=== PATIENT | female | born 1960 | race Caucasian/White ===

== ENCOUNTER → 2022-08-22 19:11 | Outpatient (CLI) | payer BC, SELFPAY ==
[2022-08-22 19:25] LABS: Basophils % 0.6 % (0.1-2.0); Eosinophils # 0.2 K/mm3 (0.0-0.4); Eosinophils % 3.2 % (0.1-12.0); Hematocrit 44.4 % (37.0-47.0); Hemoglobin 14.1 g/dL (12.2-16.2); Lymphocytes % 43.9 % (10-50); Mean Corpuscular HGB Conc 31.8 g/dL (31.8-35.4); Mean Corpuscular Hemoglobin 29.5 pg (27.0-31.2); Mean Corpuscular Volume 92.8 fl (81-99); Mean Platelet Volume 9.6 fl (7.4-10.4); Monocytes # 0.5 K/mm3 (0.1-1.0); Monocytes % 7.6 % (1.7-9.3); Neutrophils % 44.6 % (37.0-80.0); Platelet Count 277 K/mm3 (142-424); Red Blood Count 4.79 M/mm3 (4.20-5.40); White Blood Count 6.8 K/mm3 (4.8-10.8)
[2022-08-22 19:26] LABS: Chloride 110 mmol/L (98-107); Potassium 4.1 mmoL/L (3.5-5.1); Sodium 142 mmol/L (136-145)
[2022-08-22 19:28] LABS: Alanine Aminotransferase 18 U/L (12-78); Aspartate Amino Transferase 30 U/L (14-36); Blood Urea Nitrogen 9 mg/dl (7-17); Estimated Glomerular Filt Rate 85 ml/min (>60); GFR (African American) 103 ML/MIN (>60)
[2022-08-22 19:29] LABS: Albumin Level 4.4 g/dl (3.5-5.0); Albumin/Globulin Ratio 1.6 (1.1-1.8); Alkaline Phosphatase 136 U/L (38-126); Anion Gap 11.1 mEq/L (5-15); Bilirubin,Total 0.4 mg/dl (0.2-1.3); Calcium 9.1 mg/dl (8.4-10.2); Carbon Dioxide 25 mmol/L (22.0-30.0); Chol/HDL Ratio 3.5 (1-3.5); Cholesterol 180 mg/dl (140-200); Globulin 2.7 g/dL (1.3-3.2); Glucose 98 mg/dl (74-100); HDL Cholesterol 52 mg/dl (40-60); Total Protein,Serum 7.1 g/dl (6.3-8.2); Triglycerides 154 mg/dl (30-150); VLDL Cholesterol 31 mg/dL (0-40)
[2022-08-22 19:40] LABS: Direct LDL Cholesterol 93.38 mg/dL (100-129)
[2022-08-22 19:46] LABS: 25-OH Vitamin D, Total 18.8 ng/mL (30-100); Free T4 (Free Thyroxine) 1.35 ng/dl (0.78-2.19)
[2022-08-22 20:00] LABS: Thyroid Stimulating Hormone 0.16 uIU/mL (0.465-4.68)
== END ==
PROVIDERS: PCP Emergency Medicine; Visit Provider Emergency Medicine
DX: R53.83 Other fatigue (principal); E55.9 Vitamin D deficiency, unspecified; Z79.899 Other long term (current) drug therapy
CPT/HCPCS: 80053; 80061; 82306; 84439; 84443; 85025

== ENCOUNTER → 2022-09-13 10:59 | Outpatient (CLI) | payer BC, SELFPAY ==
--- NOTE | 2022-09-13 10:59 | MR_ITS ---
FINAL REPORT CLINICAL HISTORY: back pain lower back pain x 1 month FINDINGS: Multiplanar MR imaging of the lumbar spine was performed without contrast. On the sagittal T2-weighted images, disc degeneration is seen at several levels. The vertebral alignment is normal. There is no evidence of fracture. There is a 19 mm area of abnormal signal in the L3 vertebrae. The conus has an unremarkable appearance. No significant canal stenosis is identified. 1-2: There is no significant canal stenosis or neural foraminal narrowing. L2-3: There is no significant canal stenosis or neural foraminal narrowing. L3-4: There is no significant canal stenosis or neural foraminal narrowing. L4-5: An annular bulge is present. There is mild bilateral neural foraminal narrowing. L5-S1: There is an annular bulge with a small central disc protrusion. There is mild bilateral neural foraminal narrowing. IMPRESSION: Area of abnormal signal within the L3 vertebral body could represent atypical hemangioma versus other neoplasm. This could be further evaluated with follow-up MRI and/or bone scan. Small central disc protrusion at L5-S1 without central canal stenosis. Mild bilateral neural foraminal narrowing at L4-L5 and L5-S1. Reviewed, Interpreted and Dictated by Favian Sepulveda III, MD Transcribed by Kyle Mathias Authenticated and [facility]
== END ==
PROVIDERS: PCP Emergency Medicine; Visit Provider Emergency Medicine
DX: M54.9 Dorsalgia, unspecified (principal); M54.50 Low back pain, unspecified
CPT/HCPCS: 72148; 76376

== ENCOUNTER → 2022-09-20 07:45 | Outpatient (CLI) | payer BC, SELFPAY ==
--- NOTE | 2022-09-20 07:45 | US_ITS ---
FINAL REPORT CLINICAL HISTORY: ventral hernia FINDINGS: US ABDOMINAL LIMITED Limited sonographic images were obtained of the left upper quadrant. At the area of interest there are no masses or fluid collections identified. IMPRESSION: No mass or fluid collection at the area of interest. Reviewed, Interpreted and Dictated by Lazaro Ni MD Transcribed by Kyle Mathias Authenticated and [facility]
== END ==
LOC: RAD 07:45
PROVIDERS: PCP Emergency Medicine; Visit Provider Emergency Medicine
DX: K43.9 Ventral hernia without obstruction or gangrene (principal)
CPT/HCPCS: 76700

== ENCOUNTER → 2022-09-22 10:15 | Outpatient (CLI) | payer BC, SELFPAY ==
--- NOTE | 2022-09-22 10:15 | NM_ITS ---
FINAL REPORT CLINICAL HISTORY: abnl lumbar MRI L3 10:40 am 25.6 mci Tc MDP injected into lt ant pt is getting l-spine and rib xray FINDINGS: EXISTING RELEVANT IMAGING STUDIES: TECHNIQUE: The patient was injected with 25.6 mCi of technetium 99-[id number]. 3 hour delayed images were obtained. FINDINGS: Abnormal activity is seen in the L3 vertebrae concerning for compression deformity. There is also a solitary focus of abnormal activity in the left 9th rib laterally. No other abnormal tracer activity is identified to suggest occult fracture or metastatic disease. IMPRESSION: Abnormal activity knee L3 vertebrae concerning for compression deformity. Solitary focus of abnormal activity in the left 9th lateral rib. Reviewed, Interpreted and Dictated by Lazaro Ni MD Transcribed by Kassidy Rutledge Authenticated and [facility]
--- NOTE | 2022-09-22 14:09 | XR_ITS ---
FINAL REPORT CLINICAL HISTORY: per Radiologist. abnormal bone scan. FINDINGS: LUMBAR SPINE Three views demonstrate no acute fracture. The disc spaces are well preserved. There is no malalignment. No abnormality is seen corresponding to the bone scan abnormality. IMPRESSION: No abnormality seen corresponding to the bone scan abnormality. Consider MRI. Reviewed, Interpreted and Dictated by Lazaro Ni MD Transcribed by Karina Pedro Authenticated and [facility]
--- NOTE | 2022-09-22 14:09 | XR_ITS ---
FINAL REPORT TECHNIQUE: Abnormal bone scan. CLINICAL HISTORY: per Radiologist FINDINGS: A single view of the chest with 3 views of the ribs were obtained. There is no acute cardiopulmonary process. No pneumothorax is identified. There is a healing fracture of the posterolateral left 9th rib. Callus formation is seen at this location. IMPRESSION: Healing fracture of a posterolateral left 9th rib. Reviewed, Interpreted and Dictated by Lazaro Ni MD Transcribed by Karina Pedro Authenticated and [facility]
== END ==
LOC: RAD 10:15
PROVIDERS: PCP Emergency Medicine; Visit Provider Physician Assistant
DX: R93.7 Abnormal findings on diagnostic imaging of other parts of musculoskeletal system (principal)
CPT/HCPCS: 71101; 72100; 78306; A9503

== ENCOUNTER → 2022-09-26 15:00 | Outpatient (CLI) | payer BC, SELFPAY ==
[2022-09-26 19:47] LABS: Amphetamine/Metha Screen,Urine Positive ng/ml (<1000); Barbiturates Screen,Urine Negative ng/ml (<200)
[2022-09-26 22:37] LABS: Cocaine Screen,Urine Negative ng/ml (<300)
[2022-09-26 22:39] LABS: Phencyclidine Screen,Urine Negative ng/ml (<25)
[2022-09-26 22:41] LABS: Benzodiazepines Screen,Urine Negative ng/ml (<200)
[2022-09-26 22:42] LABS: Cannabinoid Screen,Urine Positive ng/ml (<50)
[2022-09-26 22:43] LABS: Methadone Screen,Urine Negative ng/ml (<300); Opiate Screen,Urine Negative ng/ml (<300)
== END ==
PROVIDERS: PCP Emergency Medicine; Visit Provider Emergency Medicine
DX: Z79.899 Other long term (current) drug therapy (principal)
CPT/HCPCS: 80305

== ENCOUNTER → 2022-10-17 09:20 | Outpatient (CLI) | payer BC, SELFPAY ==
--- NOTE | 2022-10-17 09:20 | XR_ITS ---
FINAL REPORT TECHNIQUE: Bone densitometry calculations of the lumbar spine and left hip were obtained. CLINICAL HISTORY: post menopausal FINDINGS: DEXA BONE DENSITY AXIAL SKELETON Using L1-4, the bone mineral density of the spine is 0.710 g/cm2, corresponding to T-score of -3.1. Using the left hip, the bone mineral density of the femoral neck is 0.617 g/cm2, corresponding to a T-score of -2.7. NOTE: T-score: Standard deviation compared with peak bone mass of young adult mean. *Following the recommendations of the International Society of Bone Densitometry, classification of hip BMD is based on the lower of two T-scores; total hip or femoral neck. IMPRESSION: Osteoporosis: Lowest T-score is at or below -2.5. This patient's T-score meets the World Health Organization criteria for osteoporosis. FRAX not reported because: Some T-score for Spine Total or hip Total or femoral neck at or below -2.5. Reviewed, Interpreted and Dictated by Favian Sepulveda III, MD Transcribed by Britni Guzman Authenticated and [facility]
== END ==
LOC: RAD 09:20
PROVIDERS: PCP Emergency Medicine; Visit Provider Emergency Medicine
DX: M81.0 Age-related osteoporosis without current pathological fracture (principal)
CPT/HCPCS: 77080

== ENCOUNTER → 2022-10-24 12:51 | Outpatient (POV) | payer BC, SELFPAY ==
[2022-10-24 12:57] VITALS: BP 104/74; PULSE 101; RESP 18; O2SAT 98; BMI 22.6
--- NOTE | 2022-10-24 13:02 | EXP.PAIN.OV ---
HPI Data of Consult Patient: new to practice Consult date: 10/24/22 Requesting Physician: Katy Ludwig APRN Primary Care Provider: Carlos Pitts MD Consult Narrative Reason for consult: Low back pain History of present illness: Ms. Maloney is a 62 year old female who presents today as a new patient. She is a referral from Dr. Pitts's office. Today she rates her pain a 5 out of 10. Patient states her pain is all in her back and describes it as a constant achy sensation that is worse with increased activity. Patient does state that she works at [employer] and used to do the [employer] list and would occasionally do lifting that would cause pain in her back. She states since then she has started working in the [employer] department and is constantly lifting products anywhere from 20 pounds to 5 pounds which is aggravating her back symptoms. Patient does state this interferes with her ability to perform activities of daily living such as cooking and cleaning. She states the pain has been going on for quite a while however it has worsened since mid June. Patient has no history of back surgery injections or physical therapy. Patient does use [id number] ibuprofen that does provide additional relief. Patient has not tried any heat or ice or topicals. She does state that she has no cardiac or kidney history. She is currently prescribed alprazolam 0.5 mg twice a day, dextroamphetamine 5 mg 3 times a day and [place] 7.5 mg 3 times a day from her primary care doctor. Patient denies any side effects from these medications. Her Rishi is [id number]. Its been reviewed and appropriate. CC: Katy Ludwig APRN [facility] Disclaimer: The information contained in this section may have been updated after the patient was seen, as this information can be updated by other users. Medical History (Updated 10/24/22 @ 14:01 by Katy Ludwig APRN) Anxiety Family History Other Cancer Social History (Updated 10/24/22 @ 13:01 by Charity Hwang RN) Smoking Status: Former smoker smoking status stop date: 07/03/21 how long ago did patient quit smokin year alcohol intake: never substance use type: marijuana current occupational status: employed Travel in the last 8 weeks: None Review of Systems Review of Systems Review of systems:: pertinent systems reviewed and negative unless documented below Review of systems (narrative): Review of Systems: General: No recent weight changes, no fever, no sleep disturbances Respiratory: No cough, no shortness of air, no recurring pulmonary infections Cardiovascular/peripheral vascular: No chest pain, no palpitations, no edema, no shortness of breath Gastrointestinal: No new onset incontinence, normal bowel movements reported Genitourinary: No new onset incontinence Musculoskeletal: Low back pain Psychiatric: [Normal mood/affect] Neurological: [Denies weakness in extremities], [denies balance issues] Meds Home Medications and Allergies Home Medications Medication Instructions Recorded Confirmed Type alprazolam 0.5 mg tablet 0.5 mg PO BID NERVES 10/24/22 10/24/22 History bupropion HCl 300 mg 24 hr tablet, 300 mg PO DAILY MOOD 10/24/22 10/24/22 History extended release cholecalciferol (vitamin D3) 1,250 1,250 mcg PO WEEKLY SUPPLIMENT 10/24/22 10/24/22 History mcg (50,000 unit) capsule dextroamphetamine-amphetamine 20 20 mg PO TID MOOD 10/24/22 10/24/22 History mg tablet hydrocodone 7.5 mg-acetaminophen 1 tab PO TID Pain 10/24/22 10/24/22 History 325 mg tablet olanzapine 15 mg tablet 15 mg PO HS MOOD 10/24/22 10/24/22 History New Prescriptions to Start Prescriptions: Allergies Allergy/AdvReac Type Severity Reaction Status Date / Time Penicillins Allergy Mild Rash Verified 09/26/22 15:08 Objective Narrative: Physical Exam: General: Alert and oriented x3, no acute distress, pleasant and care coordinator
== END | disposition home or self-care (01) ==
PROVIDERS: PCP Emergency Medicine; Visit Provider Nurse Practitioner Family
DX: M54.50 Low back pain, unspecified (principal); M47.816 Spondylosis without myelopathy or radiculopathy, lumbar region
CPT/HCPCS: 99202; G0463

== ENCOUNTER → 2023-03-29 15:46 | Outpatient (CLI) | payer BC, SELFPAY ==
--- NOTE | 2023-03-29 15:46 | MM_ITS ---
PROCEDURE INFORMATION: Exam: Bilateral Screening 3D Mammography Exam date and time: 03/29/2023 3:48 PM Age: 62 years old Clinical indication: Screening examination TECHNIQUE: Imaging protocol: Bilateral Screening tomosynthesis and 2D mammography including computer-aided detection (CAD) when performed. COMPARISON: 1. MG SCRN MAMMO W/CAD BILAT 03/29/2017 3:52 PM 2. MG MAMMO SCREENING DIGITAL TOMOSYNTHESIS BILATERAL W CAD 03/08/2016 3:55 PM FINDINGS: MAMMOGRAPHY: Breast composition: There are scattered areas of fibroglandular density. Mass: None. Architectural distortion: None. Calcifications: No suspicious calcifications. Asymmetric density: None. Skin thickening: None. Axillary adenopathy: None. IMPRESSION: No mammographic evidence of malignancy. Annual screening is recommended unless otherwise clinically indicated. ASSESSMENT: BI-RADS Category 1: Negative
== END ==
PROVIDERS: PCP Emergency Medicine; Visit Provider Emergency Medicine
DX: Z12.39 Encounter for other screening for malignant neoplasm of breast (principal)
CPT/HCPCS: 77063; 77067

== ENCOUNTER → 2023-04-07 21:24 | Outpatient (CLI) | payer BC, SELFPAY ==
[2023-04-07 16:31] LABS: Amphetamine/Metha Screen,Urine Negative ng/ml (<1000); Barbiturates Screen,Urine Negative ng/ml (<200)
[2023-04-07 16:32] LABS: Benzodiazepines Screen,Urine Positive ng/ml (<200); Cannabinoid Screen,Urine Positive ng/ml (<50)
[2023-04-07 16:34] LABS: Cocaine Screen,Urine Negative ng/ml (<300); Methadone Screen,Urine Negative ng/ml (<300)
[2023-04-07 16:35] LABS: Opiate Screen,Urine Negative ng/ml (<300)
[2023-04-07 16:36] LABS: Phencyclidine Screen,Urine Negative ng/ml (<25)
== END ==
PROVIDERS: PCP Emergency Medicine; Visit Provider Emergency Medicine
DX: F41.9 Anxiety disorder, unspecified (principal)
CPT/HCPCS: 80305

== ENCOUNTER 2023-10-02 16:08 | Outpatient (CLI) | payer BC, SELFPAY ==
--- NOTE | 2023-10-02 16:27 | CT_ITS ---
PROCEDURE INFORMATION: Exam: CTA Chest With Contrast Exam date and time: 10/02/2023 5:28 PM Age: 63 years old Clinical indication: Dyspnea and tachypnea and other: Lung CA; Additional info: Dyspnea/tachycardia/lung CA TECHNIQUE: Imaging protocol: Computed tomographic angiography of the chest with contrast. Exam focused on the arteries. 3D rendering (Not supervised by radiologist): MIP and/or 3D reconstructed images were created by the technologist. Radiation optimization: All CT scans at this facility use at least one of these dose optimization techniques: automated exposure control; mA and/or kV adjustment per patient size (includes targeted exams where dose is matched to clinical indication); or iterative reconstruction. Contrast material: ISOVUE; Contrast volume: 75 ml; Contrast route: INTRAVENOUS (IV); COMPARISON: 1. CR XR RIBS LT MIN 3V W CXR1V 09/22/2022 2:15 PM 2. NM BONE SCAN WHOLE BODY 09/22/2022 1:46 PM 3. US ABDOMEN COMPLETE 09/20/2022 7:47 AM FINDINGS: Tubes, catheters and devices: There is a right chest port in place catheter tip projects over the SVC. Pulmonary arteries: There is fair opacification of the pulmonary arterial tree. No central pulmonary arterial filling defect is seen. Aorta: There is atherosclerotic disease of the visualized aorta and its major branch vessels. Other arteries: Subsegmental vessels are not well evaluated due to technical factors. Lungs: Scattered areas of bronchial wall thickening which are likely chronic inflammatory. A few areas of subpleural reticulation are noted, nonspecific. There are scattered areas of emphysema throughout the lungs. There is a consolidative opacity in the left lower lobe which is concerning for pneumonia in the acute setting. Given the patient's history of lung cancer, malignancy in this region is not excluded and correlation with prior cross-sectional imaging is suggested. There are scattered areas of emphysema throughout the lungs. There are scattered calcified granulomas in the lungs which most likely reflect prior granulomatous disease. Pleural spaces: Unremarkable. No pneumothorax. No pleural effusion. Heart: Unremarkable. No cardiomegaly. No pericardial effusion. Coronary arteries: There is mild coronary atherosclerotic disease/calcification although evaluation is limited secondary to the non gated nature of the study. Lymph nodes: Unremarkable. No enlarged lymph nodes. Gallbladder and bile ducts: The patient is status post cholecystectomy. Bones/joints: There is diffuse degenerative disease of the visualized osseous structures. Soft tissues: Unremarkable. IMPRESSION: 1. No central pulmonary arterial filling defect is seen. Subsegmental vessels are not well evaluated due to technical factors. 2. There is a consolidative opacity in the left lower lobe which is concerning for pneumonia in the acute setting. Given the patient's history of lung cancer, malignancy in this region is not excluded and correlation with prior cross-sectional imaging is suggested.
[2023-10-02 16:33] LABS: Basophils # 0.1 K/mm3 (0-0.2); Basophils % 0.9 % (0.1-2.0); Eosinophils # 0.1 K/mm3 (0.0-0.4); Hematocrit 46.6 % (37.0-47.0); Hemoglobin 15.3 g/dL (12.2-16.2); Lymphocytes # 2.3 K/mm3 (0.7-4.5); Lymphocytes % 34.9 % (10-50); Mean Corpuscular HGB Conc 32.8 g/dL (31.8-35.4); Mean Corpuscular Volume 94.6 fl (81-99); Mean Platelet Volume 7.9 fl (7.4-10.4); Monocytes # 0.4 K/mm3 (0.1-1.0); Monocytes % 5.3 % (1.7-9.3); Neutrophils # 3.8 K/mm3 (1.8-7.8); Neutrophils % 57.8 % (37.0-80.0); Platelet Count 299 K/mm3 (142-424); Red Blood Count 4.92 M/mm3 (4.20-5.40); Red Cell Distribution Width 14.1 % (11.5-17.5); White Blood Count 6.6 K/mm3 (4.8-10.8)
[2023-10-02 17:06] LABS: Alanine Aminotransferase 27 U/L (12-78); Albumin Level 3.9 g/dl (3.5-5.0); Alkaline Phosphatase 100 U/L (38-126); Aspartate Amino Transferase 32 U/L (14-36); Bilirubin,Direct 0.4 mg/dl (0.0-0.4); Bilirubin,Indirect 0.1 mg/dL (0.0-0.9); Bilirubin,Total 0.5 mg/dl (0.2-1.3); Bilirubin,Unconjugated 0.2 mg/dL (0.0-1.1); Blood Urea Nitrogen 14 mg/dl (7-17); Calcium 9.9 mg/dl (8.4-10.2); Carbon Dioxide 19 mmol/L (22.0-30.0); Chloride 109 mmol/L (98-107); Chol/HDL Ratio 2.8 (1-3.5); Cholesterol 313 mg/dl (140-200); Estimated Glomerular Filt Rate 72 ml/min (>60); GFR (African American) 88 ML/MIN (>60); Glucose 106 mg/dl (74-100); HDL Cholesterol 110 mg/dl (40-60); Magnesium 1.9 mg/dl (1.6-2.3); Sodium 137 mmol/L (136-145); Total Protein,Serum 6.7 g/dl (6.3-8.2); Triglycerides 231 mg/dl (30-150); VLDL Cholesterol 46 mg/dL (0-40)
[2023-10-02 17:18] LABS: Direct LDL Cholesterol 192.85 mg/dL (100-129)
[2023-10-02 17:36] LABS: Thyroid Stimulating Hormone 0.82 uIU/mL (0.465-4.68)
[2023-10-02] MEDS: SODIUM CHLORIDE 0.9% 10ML SYR (RAD ONLY) 10 ML IV (17:39)
[2023-10-02] MEDS: IOPAMIDOL-370 (76%);100ML BOTTLE 75 ML IV (17:39)
[2023-10-02] MEDS: 0.9 % SODIUM CHLORIDE 50 ML VIAL IV (17:39)
[2023-10-02 18:23] LABS: Free T4 (Free Thyroxine) 1.58 ng/dl (0.78-2.19)
== END 2023-10-02 23:59 ==
PROVIDERS: PCP Internal Medicine; Visit Provider Physician Assistant
DX: R06.00 Dyspnea, unspecified (principal); R00.0 Tachycardia, unspecified; R94.31 Abnormal electrocardiogram [ECG] [EKG]; R91.8 Other nonspecific abnormal finding of lung field; Z87.891 Personal history of nicotine dependence
CPT/HCPCS: 36415; 71275; 80048; 80061; 80076; 83735; 84439; 84443; 85025; 93270; Q9967